=== PATIENT | female | born 1980 | race African-American/Black ===

== ENCOUNTER 2016-11-30 23:25 | Emergency (ER) | payer MEDICAID ==
[2016-12-01] MEDS ORDERED: CEPHALEXIN MONOHYDRATE 250 MG CAPSULE PO ONE (00:02)
--- NOTE | 2016-12-01 00:03 | ERNOTE ---
Upper Extremity HPI - General Extremities Pain Location: 4th finger: left - swelling and pain Time Seen by Provider: 11/30/16 23:55 Source: patient Exam Limitations: no limitations - Immun/Allergies/Home Medications Immunizations: IMMUNIZATION HX Immunizations Up to Date Yes History of Influenza Vaccine No Hx Pneumococcal Vaccination Yes Allergies/Adverse Reactions: Allergies Allergy/AdvReac Type Severity Reaction Status Date / Time fluconazole Allergy Verified 11/30/16 23:40 methotrexate Allergy Verified 11/30/16 23:41 metronidazole Allergy Verified 11/30/16 23:40 Home Medications: HOME MEDICATIONS Divalproex Sodium [Depakote ER] 250 mg PO HS 11/30/16 [Last Taken Unknown] Cephalexin [Keflex] 500 mg PO QID #40 capsule 12/01/16 [Last Taken Unknown] - History of Present Illness Narrative: Started with blisters on her left ring finger which happens approx once a year. This time it began to get red, swollen and red streaks appeared up her arm. Occurred: yesterday Severity: moderate Method of Injury: Reports: unknown Review of Systems - Review of Systems Constitutional: Absent: recent illness, fever, chills EYE: Present: no symptoms reported ENT: Present: no symptoms reported Respiratory: Present: no symptoms reported Cardiology: Absent: edema Gastrointestinal/Abdominal: Absent: nausea, vomiting Genitourinary: Present: no symptoms reported Musculoskeletal: Absent: muscle pain, muscle stiffness Skin: Present: See HPI Neurological: Present: no symptoms reported Endocrine: Present: no symptoms reported Hematologic/Lymphatic: Present: no symptoms reported Psych: Present: no symptoms reported - Patient's Past Medical History Patient History - Medical: Arthritis, Migraines Patient History - Cardiac/Respiratory: No pertinent hx Patient History - Cancer: No Hx of Cancer Patient History - Surgical Procedures: T & A Patient History - Other: None - Social History Living Situations: home Psych History: No pertinent hx Smoking Status: Never smoker Alcohol Use: none Drug Use: none - Immunizations Immunizations Up to Date: Yes Hx Pneumococcal Vaccination: Yes History of Influenza Vaccine: No Physical Exam - Physical Exam General Appearance: Present: wd/wn, alert, no apparent distress Head Exam: Present: normal inspection, no evidence of injury Respiratory: Present: no respiratory distress, no accessory muscle use Extremity Exam: Present: normal except - - left ring finger mild swelling, mild swelling and LAD at left elbow. Absent: joint redness, joint swelling Neurological Exam: Present: alert, oriented, normal mood/affect Skin Exam: Present: skin rash - blisters and erythema left ring finger. Mild streaking erythema to left elbow Lymphatic Exam: Present: other - left epitrochlear nodes mild enlargement ED Progress - Vital Signs Vital Signs: Vital Signs 11/30/16 23:36 Temperature 36.8 C Pulse Rate 77 Respiratory 18 Rate Blood Pressure 142/86 O2 Sat by Pulse 100 Oximetry - Progress/Reassessment Chief Complaint: Upper Extremity Injury/Problem Departure Clinical Impression: Cellulitis Qualifiers: Site of cellulitis: extremity Site of cellulitis of extremity: finger Laterality: left Qualified Code(s): L03.012 - Cellulitis of left finger - Departure Disposition: Home Follow Up Needed Condition: Good Instructions: Cellulitis, Adult, [id number] Referrals: Rojelio Pérez MD [Primary Care Provider] - Prescriptions: Cephalexin [Keflex] 500 mg PO QID #40 capsule
[2016-12-01] MEDS ORDERED: CEPHALEXIN MONOHYDRATE 250 MG CAPSULE ONE (00:04)
[2016-12-01 02:07] VITALS: BP 136/85
== END 2016-12-01 00:09 | disposition home or self-care (01) ==
LOC: ER 23:25
DX: L03.012 Cellulitis of left finger (principal); G43.909 Migraine, unspecified, not intractable, without status migrainosus